=== PATIENT | male | born 1950 | race Caucasian/White ===

== ENCOUNTER 2023-07-18 15:05 | Emergency (ER) | payer MEDICARE, OTHER ==
[~2023-07-18] VITALS: Ht 175.3 cm; Wt 97.1 kg
[2023-07-18 15:07] VITALS: TEMP 98.3
[2023-07-18 18:15] LABS: BASO # 0.1 10^3/uL (0.0-0.2); BASO % 1.3 % (0.0-1.0); EOS # 0.4 10^3/uL (0.0-0.5); EOS % 4.1 % (0.0-3.0); HEMATOCRIT 40.8 % (42.0-52.0); HEMOGLOBIN 12.8 g/dl (13.5-17.5); LYMPH # 1.2 10^3/uL (1.5-5.0); LYMPH % 13.4 % (24.0-44.0); MEAN CORPUSCULAR HEMOGLOBIN 29.2 pg (27.0-33.0); MEAN CORPUSCULAR HGB CONC 31.4 g/dl (32.0-36.5); MEAN CORPUSCULAR VOLUME 92.9 fl (80.0-96.0); MONO # 0.7 10^3/uL (0.0-0.8); MONO % 7.3 % (2.0-8.0); NEUTROPHILS # 6.6 10^3/uL (1.5-8.5); NEUTROPHILS % 73.6 % (36.0-66.0); PLATELET COUNT, AUTOMATED 249 10^3/uL (150-450); RED BLOOD COUNT 4.39 10^6/uL (4.30-6.10); WHITE BLOOD COUNT 8.9 10^3/uL (4.0-10.0)
[2023-07-18 18:25] LABS: APPEARANCE, URINE CLEAR (CLEAR); BACTERIA, URINE AUTO NEGATIVE (NEGATIVE); BILIRUBIN, URINE AUTO NEGATIVE (NEGATIVE); BLOOD, URINE BLOOD NEGATIVE (NEGATIVE); COLOR, URINE YELLOW (YELLOW); GLUCOSE, URINE (UA) AUTO 3+ mg/dL (NEGATIVE); KETONE, URINE AUTO NEGATIVE (NEGATIVE); LEUKOCYTE ESTERASE, URINE AUTO NEGATIVE (NEGATIVE); NITRITE, URINE AUTO NEGATIVE (NEGATIVE); PROTEIN, URINE AUTO 2+ mg/dL (NEGATIVE); RBC, URINE AUTO 0 /HPF (0-3); SPECIFIC GRAVITY URINE AUTO 1.014 (1.002-1.035); SQUAMOUS EPITHELIAL CELL UR AU 0 /HPF (0-6); WBC, URINE AUTO 0 /HPF (0-3)
[2023-07-18] MEDS ORDERED: ARIP1TAB10 PO (18:46)
[2023-07-18] MEDS ORDERED: ALBU2.5V10 INH (18:46)
[2023-07-18] MEDS ORDERED: ATOR40TA75 PO (18:47)
[2023-07-18 18:50] LABS: ALBUMIN 3.3 G/DL (3.2-5.2); ALKALINE PHOSPHATASE 111 U/L (46-116); ALT/SGPT 26 U/L (7.0-40); AST/SGOT 19 U/L (<34); BILIRUBIN,DIRECT 0.2 MG/DL (<0.4); BILIRUBIN,TOTAL 0.4 MG/DL (0.3-1.2); BLOOD UREA NITROGEN 21 MG/DL (9-23); CALCIUM LEVEL 8.9 MG/DL (8.3-10.6); CARBON DIOXIDE LEVEL 30 MMOL/L (20-31); CHLORIDE LEVEL 106 MMOL/L (98-107); CREATININE FOR GFR 1.12 MG/DL (0.70-1.30); GLOMERULAR FILTRATION RATE > 60.0 (>42); GLUCOSE, FASTING 98 MG/DL (74-106); POTASSIUM SERUM 4.4 MMOL/L (3.5-5.1); SODIUM LEVEL 141 MMOL/L (136-145); TOTAL PROTEIN 6.4 G/DL (5.7-8.2)
[2023-07-18 18:53] LABS: CK-MB VALUE MASS 2.1 NG/ML (<3.6)
[2023-07-18 18:55] LABS: CPK CREATINE PHOSPHOKINASE 78 U/L (46-171); MB/CK RELATIVE INDEX 2.69 (< OR =4)
[2023-07-18] MEDS ORDERED: B-12100021 PO (18:57)
[2023-07-18] MEDS ORDERED: JARD1TAB3 PO (18:57)
[2023-07-18] MEDS ORDERED: CARV12.5 PO (18:57)
[2023-07-18] MEDS ORDERED: PRAZ5CAP PO (18:57)
[2023-07-18] MEDS ORDERED: PANT40TA29 PO (18:57)
[2023-07-18] MEDS ORDERED: LISI40TA4 PO (18:57)
[2023-07-18] MEDS ORDERED: TRUL0.5I SC (18:57)
[2023-07-18] MEDS ORDERED: GABA-282 PO (18:57)
[2023-07-18] MEDS ORDERED: CHLO125TA PO (18:57)
[2023-07-18] MEDS ORDERED: FURO20TA2 PO (18:57)
[2023-07-18] MEDS ORDERED: DULO1CAP6 PO (18:57)
[2023-07-18] MEDS ORDERED: LAMO150T3 PO (18:57)
[2023-07-18] MEDS ORDERED: LEVO150T7 PO (18:57)
[2023-07-18] MEDS ORDERED: KETOROLAC TROMETHAMINE 10 MG TAB PO ONE (19:15)
[2023-07-18] MEDS: CARVedilol 12.5 MG TAB PO ONE (19:40)
[2023-07-18 20:25] VITALS: BP 126/94
[2023-07-18] MEDS ORDERED: CARV25TA PO (20:50)
[2023-07-18 21:05] VITALS: O2SAT 95
== END 2023-07-18 21:08 | disposition home or self-care (01) ==
LOC: M ED 15:05 → EDBD 15:05 → M ED 21:08
DX: I11.0 Hypertensive heart disease with heart failure (principal); R01.1 Cardiac murmur, unspecified; E11.9 Type 2 diabetes mellitus without complications; E78.5 Hyperlipidemia, unspecified; J44.9 Chronic obstructive pulmonary disease, unspecified; M54.9 Dorsalgia, unspecified; Z79.02 Long term (current) use of antithrombotics/antiplatelets; Z91.013 Allergy to seafood

== ENCOUNTER → 2024-03-06 | Outpatient (CLI) | payer OTHER, MEDICARE ==
[~2024-03-06] MED LIST: ALBU2.5V10 INH; ARIP1TAB10 PO; ATOR40TA75 PO; B-12100021 PO; CARV12.5 PO; CARV25TA PO; CHLO125TA PO; DULO1CAP6 PO; FURO20TA2 PO; GABA-1172 PO; JARD1TAB3 PO; LAMO150T3 PO; LEVO150T7 PO; LISI40TA4 PO; PANT40TA29 PO; PRAZ5CAP PO; TRUL0.5I SC
== END ==
LOC: M RAD 10:10
PROVIDERS: ATTEND Nurse Practitioner Family
DX: E11.9 Type 2 diabetes mellitus without complications (principal); N18.9 Chronic kidney disease, unspecified

== ENCOUNTER 2024-07-29 18:17 | Inpatient (IN) | payer OTHER, MEDICARE ==
[~2024-07-29] VITALS: Ht 175.3 cm; Wt 111.6 kg
[2024-07-29] MEDS: methylPREDNISolone 125MG 2ML VIAL IV ONE (20:10)
[2024-07-29 20:18] LABS: VENOUS BASE EXCESS -0.4 (-2.0-2.0); VENOUS HCO3 28.6 MMOL/L (23.0-27.0); VENOUS O2 SATURATION 54.6 % (60.0-80.0); VENOUS PARTIAL PRESSURE O2 32.3 mmHg (30.0-50.0); VENOUS PH 7.255 UNITS (7.330-7.430); VENOUS STANDARD HCO3 23.1 MMOL/L; VENOUS TOTAL CO2 30.6 MMOL/L (24.0-28.0)
[2024-07-29] MEDS: IPRATROPIUM 0.5MG/ALBUTEROL 2.5MG INH SOL UD 3ML (DUONEB) NEB ONE (20:23)
[2024-07-29 20:24] LABS: BASO # 0.1 10^3/uL (0.0-0.2); EOS # 0.4 10^3/uL (0.0-0.5); EOS % 3.6 % (0.0-3.0); HEMATOCRIT 46.8 % (42.0-52.0); HEMOGLOBIN 14.4 g/dl (13.5-17.5); LYMPH # 0.9 10^3/uL (1.5-5.0); LYMPH % 7.3 % (24.0-44.0); MEAN CORPUSCULAR HEMOGLOBIN 29.1 pg (27.0-33.0); MEAN CORPUSCULAR HGB CONC 30.8 g/dl (32.0-36.5); MEAN CORPUSCULAR VOLUME 94.5 fl (80.0-96.0); MONO # 0.7 10^3/uL (0.0-0.8); MONO % 5.6 % (2.0-8.0); NEUTROPHILS # 9.6 10^3/uL (1.5-8.5); NEUTROPHILS % 82.2 % (36.0-66.0); PLATELET COUNT, AUTOMATED 195 10^3/uL (150-450); RED BLOOD COUNT 4.95 10^6/uL (4.30-6.10); WHITE BLOOD COUNT 11.7 10^3/uL (4.0-10.0)
[2024-07-29 20:48] LABS: CK-MB VALUE MASS 3.9 NG/ML (<3.6); MB/CK RELATIVE INDEX 3.82 (< OR =4)
[2024-07-29 20:49] LABS: ALBUMIN 3.1 G/DL (3.2-5.2); BILIRUBIN,DIRECT 0.1 MG/DL (<0.4); BILIRUBIN,TOTAL 0.3 MG/DL (0.3-1.2); CALCIUM LEVEL 8.4 MG/DL (8.3-10.6); CREATININE FOR GFR 1.52 MG/DL (0.70-1.30); GLOMERULAR FILTRATION RATE 47.8 (>42); POTASSIUM SERUM 4.4 MMOL/L (3.5-5.1); TOTAL PROTEIN 6.5 G/DL (5.7-8.2)
[2024-07-29 22:15] LABS: ABG BASE EXCESS -1.5 (-2.0-2.0); ABG HCO3 24.7 MMOL/L (22.0-26.0); ABG O2 SATURATION 96.2 % (95.0-99.0); ABG PARTIAL PRESSURE CO2 46.8 mmHg (35.0-45.0); ABG STANDARD HCO3 23.2 MMOL/L. (22.0-26.0); ABG TOTAL CO2 26.1 MMOL/L (23.0-31.0)
[2024-07-29] MEDS ORDERED: ISOVUE-370 76% 100ML VIAL As Ordered ONE (22:20)
[2024-07-29 22:47] LABS: CK-MB VALUE MASS 4.5 NG/ML (<3.6)
[2024-07-29 22:48] LABS: MB/CK RELATIVE INDEX 3.65 (< OR =4)
[2024-07-30] MEDS: cefTRIAXone SOD 2 GM in DEXTROSE 5% (D5W) ADV/MINI-BAG 50 ML IV ONE (00:25)
[2024-07-30] MEDS: AZITHROMYCIN 250MG TABLET PO ONE (00:26)
[2024-07-30] MEDS ORDERED: TRUL10IN SC (01:17)
[2024-07-30] MEDS ORDERED: ROSU20TA86 PO (01:17)
[2024-07-30] MEDS ORDERED: BUME1TAB3 PO (01:17)
[2024-07-30] MEDS ORDERED: ENTR1TAB PO (01:17)
[2024-07-30] MEDS ORDERED: SOTA80TA2 PO (01:17)
[2024-07-30] MEDS ORDERED: VITA-168 PO (01:17)
[2024-07-30] MEDS ORDERED: PRAZ5CAP PO (01:17)
[2024-07-30] MEDS ORDERED: ELIQ5TAB PO (01:17)
[2024-07-30] MEDS ORDERED: FERR1TAB8 PO (01:17)
[2024-07-30] MEDS ORDERED: AMLO1TAB25 PO (01:17)
[2024-07-30] MEDS ORDERED: DULO1CAP6 PO (01:17)
[2024-07-30] MEDS ORDERED: CARV25TA PO (01:17)
[2024-07-30] MEDS ORDERED: ASCO500T PO (01:17)
[2024-07-30] MEDS ORDERED: ASPI81CH33 PO (01:17)
[2024-07-30] MEDS ORDERED: LAMI1TAB8 PO (01:17)
[2024-07-30] MEDS ORDERED: HOME MED LIST COMPLETE! XX SCH (01:20)
[2024-07-30] MEDS ORDERED: GLUCAGON INJ 1MG VIAL SC PRN (02:35)
[2024-07-30] MEDS ORDERED: DEXTROSE 50% 50ML SYRINGE IV PRN (02:35)
[2024-07-30] MEDS ORDERED: GLUCOSE 4 GM CHEW PO PRN (02:35)
[2024-07-30] MEDS ORDERED: PILL CUTTER 1 EACH XX PRN (02:55)
[2024-07-30] MEDS ORDERED: IPRATROPIUM 0.5MG/ALBUTEROL 2.5MG INH SOL UD 3ML (DUONEB) NEB PRN ×2 (03:05)
[2024-07-30] MEDS: lamoTRIgine 100MG TAB PO SCH (04:49)
[2024-07-30] MEDS: DOXYCYCLINE HYCLATE 100MG TABLET PO SCH (04:49)
[2024-07-30] MEDS: NS (Normal Saline) 0.9% 1,000 ML IV SCH (04:49)
[2024-07-30] MEDS: LEVOTHYROXINE 150MCG TABLET (0.15MG) PO SCH (06:34)
[2024-07-30] MEDS: methylPREDNISolone 40MG 1ML VIAL IV SCH (06:34)
[2024-07-30 06:59] LABS: HEMATOCRIT 47.8 % (42.0-52.0); MEAN CORPUSCULAR HEMOGLOBIN 29.3 pg (27.0-33.0); MEAN CORPUSCULAR HGB CONC 31.4 g/dl (32.0-36.5); MEAN CORPUSCULAR VOLUME 93.4 fl (80.0-96.0); PLATELET COUNT, AUTOMATED 200 10^3/uL (150-450); RED BLOOD COUNT 5.12 10^6/uL (4.30-6.10); WHITE BLOOD COUNT 7.2 10^3/uL (4.0-10.0)
[2024-07-30 07:44] LABS: ALBUMIN 3.1 G/DL (3.2-5.2); BILIRUBIN,TOTAL 0.3 MG/DL (0.3-1.2); CALCIUM LEVEL 8.6 MG/DL (8.3-10.6); CREATININE FOR GFR 1.34 MG/DL (0.70-1.30); GLOMERULAR FILTRATION RATE 55.3 (>42); POTASSIUM SERUM 4.6 MMOL/L (3.5-5.1); TOTAL PROTEIN 6.7 G/DL (5.7-8.2)
[2024-07-30] MEDS: SYMBICORT 160/4.5MCG INHALER 6GM INH SCH (08:46)
[2024-07-30] MEDS ORDERED: ENTRESTO 24-26MG TABLET (SACUBITRIL/VALSARTAN) PO SCH (09:00)
[2024-07-30] MEDS: INSULIN LISPRO (NovoLOG) PER UNIT SC SCH ×2 (09:26→20:18)
[2024-07-30] MEDS: PANTOPRAZOLE 40MG VIAL IV SCH (09:27)
[2024-07-30] MEDS: PRAZOSIN 1 MG CAP PO SCH (09:27)
[2024-07-30] MEDS: CARVedilol 12.5 MG TAB PO SCH (09:28)
[2024-07-30] MEDS: ASPIRIN 81MG CHEW TABLET PO SCH (09:28)
[2024-07-30] MEDS: APIXABAN 5 MG TAB (ELIQUIS) PO SCH (09:28)
[2024-07-30] MEDS: DULoxetine 30MG CAPSULE (CYMBALTA) PO SCH (09:29)
[2024-07-30] MEDS: ROSUVASTATIN 10 MG TAB (CRESTOR) PO SCH (09:29)
[2024-07-30] MEDS: ARIPiprazole 15 MG TAB (AbiLIFY) PO SCH (10:55)
[2024-07-30] MEDS: BUMETANIDE 1 MG TAB PO SCH (10:56)
[2024-07-30] MEDS: SOTALOL HCL 80 MG TAB PO SCH (10:56)
[2024-07-30 14:13] LABS: CALCIUM LEVEL 8.6 MG/DL (8.3-10.6); CREATININE FOR GFR 1.48 MG/DL (0.70-1.30); GLOMERULAR FILTRATION RATE 49.3 (>42); POTASSIUM SERUM 4.6 MMOL/L (3.5-5.1)
[2024-07-30 14:47] VITALS: BP 158/84; TEMP 97.2; O2SAT 93
[2024-07-30 20:00] VITALS: BP 123/70; TEMP 97.3; O2SAT 93
[2024-07-30] MEDS: cefTRIAXone SOD 1 GM in DEXTROSE 5% (D5W) ADV/MINI-BAG 50 ML IV SCH (20:18)
[2024-07-30 23:50] VITALS: BP 124/68; TEMP 97.3; O2SAT 93
[2024-07-31] VITALS (7 sets, daily range): BP systolic 122–136; BP diastolic 65–76; TEMP 97–100.1; O2SAT 90–93
[2024-07-31 06:07] LABS: HEMATOCRIT 40.8 % (42.0-52.0); MEAN CORPUSCULAR HEMOGLOBIN 29.1 pg (27.0-33.0); MEAN CORPUSCULAR HGB CONC 31.1 g/dl (32.0-36.5); MEAN CORPUSCULAR VOLUME 93.6 fl (80.0-96.0); PLATELET COUNT, AUTOMATED 220 10^3/uL (150-450); RED BLOOD COUNT 4.36 10^6/uL (4.30-6.10); WHITE BLOOD COUNT 11.7 10^3/uL (4.0-10.0)
[2024-07-31 06:09] LABS: HEMOGLOBIN 12.7 g/dl (13.5-17.5)
[2024-07-31 06:36] LABS: ALBUMIN 2.7 G/DL (3.2-5.2); BILIRUBIN,TOTAL 0.2 MG/DL (0.3-1.2); CALCIUM LEVEL 8.1 MG/DL (8.3-10.6); CREATININE FOR GFR 1.41 MG/DL (0.70-1.30); GLOMERULAR FILTRATION RATE 52.2 (>42); POTASSIUM SERUM 4.4 MMOL/L (3.5-5.1); TOTAL PROTEIN 5.8 G/DL (5.7-8.2)
[2024-07-31 11:41] LABS: APPEARANCE, URINE HAZY (CLEAR); BACTERIA, URINE AUTO NEGATIVE (NEGATIVE); BILIRUBIN, URINE AUTO NEGATIVE (NEGATIVE); BLOOD, URINE BLOOD NEGATIVE (NEGATIVE); COLOR, URINE YELLOW (YELLOW); GLUCOSE, URINE (UA) AUTO 3+ mg/dL (NEGATIVE); KETONE, URINE AUTO NEGATIVE (NEGATIVE); LEUKOCYTE ESTERASE, URINE AUTO NEGATIVE (NEGATIVE); MUCUS, URINE SMALL (NEGATIVE); NITRITE, URINE AUTO NEGATIVE (NEGATIVE); PROTEIN, URINE AUTO 3+ mg/dL (NEGATIVE); RBC, URINE AUTO 1 /HPF (0-3); SPECIFIC GRAVITY URINE AUTO 1.026 (1.002-1.035); SQUAMOUS EPITHELIAL CELL UR AU 1 /HPF (0-6); UROBILINOGEN, URINE AUTO 0.2 mg/dL (0.0-2.0); WBC, URINE AUTO 3 /HPF (0-3)
[2024-07-31] MEDS ORDERED: SYMB16INH INH (12:54)
[2024-07-31] MEDS ORDERED: PRED10TA2 PO (12:54)
[2024-07-31] MEDS ORDERED: VENTAER INH (13:12)
[2024-07-31] MEDS ORDERED: FLUT1BLS IH (13:54)
== END 2024-07-31 17:21 | disposition home or self-care (01) | DRG 196 ==
LOC: EDBD 18:17 → M ED 18:17 → M ED INP 07-30 01:48 → M MSPAV 07-30 14:47
PROVIDERS: ADMIT Family Medicine; ATTEND Student in an Organized Health Care Education/Training Program
DX: J84.89 Other specified interstitial pulmonary diseases (principal); I21.A1 Myocardial infarction type 2; J15.9 Unspecified bacterial pneumonia; J44.0 Chronic obstructive pulmonary disease with (acute) lower respiratory infection; J44.1 Chronic obstructive pulmonary disease with (acute) exacerbation; N17.9 Acute kidney failure, unspecified; I13.0 Hypertensive heart and chronic kidney disease with heart failure and stage 1 through stage 4 chronic kidney disease, or unspecified chronic kidney disease; N18.9 Chronic kidney disease, unspecified; I50.9 Heart failure, unspecified; R91.8 Other nonspecific abnormal finding of lung field; I48.91 Unspecified atrial fibrillation; E11.22 Type 2 diabetes mellitus with diabetic chronic kidney disease; I27.20 Pulmonary hypertension, unspecified; F32.A Depression, unspecified; K57.90 Diverticulosis of intestine, part unspecified, without perforation or abscess without bleeding; Z95.0 Presence of cardiac pacemaker; Z90.49 Acquired absence of other specified parts of digestive tract; Z79.01 Long term (current) use of anticoagulants; Z79.82 Long term (current) use of aspirin; Z79.890 Hormone replacement therapy; Z79.899 Other long term (current) drug therapy; Z91.013 Allergy to seafood; Z99.81 Dependence on supplemental oxygen

== ENCOUNTER 2024-09-20 10:58 | Emergency (ER) | payer OTHER, MEDICARE ==
[~2024-09-20] VITALS: Ht 167.6 cm; Wt 101.7 kg
[~2024-09-20 10:58] MED LIST changes: +AMLO1TAB25 PO; +ASCO500T PO; +ASPI81CH33 PO; +BUME1TAB3 PO; +ELIQ5TAB PO; +ENTR1TAB PO; +FERR1TAB8 PO; +FLUT1BLS IH; +LAMI1TAB8 PO; +PRED10TA2 PO; +ROSU20TA86 PO; +SOTA80TA2 PO; +SYMB16INH INH; +TRUL10IN SC; +VENTAER INH; +VITA-168 PO
[2024-09-20 11:53] LABS: BASO # 0.1 10^3/uL (0.0-0.2); BASO % 1.4 % (0.0-1.0); EOS # 0.4 10^3/uL (0.0-0.5); EOS % 5.2 % (0.0-3.0); HEMATOCRIT 45.3 % (42.0-52.0); HEMOGLOBIN 14.6 g/dl (13.5-17.5); LYMPH # 1.3 10^3/uL (1.5-5.0); LYMPH % 15.3 % (24.0-44.0); MEAN CORPUSCULAR HEMOGLOBIN 29.4 pg (27.0-33.0); MEAN CORPUSCULAR HGB CONC 32.2 g/dl (32.0-36.5); MEAN CORPUSCULAR VOLUME 91.3 fl (80.0-96.0); MONO # 0.5 10^3/uL (0.0-0.8); MONO % 5.5 % (2.0-8.0); NEUTROPHILS % 72.4 % (36.0-66.0); PLATELET COUNT, AUTOMATED 181 10^3/uL (150-450); RED BLOOD COUNT 4.96 10^6/uL (4.30-6.10); WHITE BLOOD COUNT 8.3 10^3/uL (4.0-10.0)
[2024-09-20 12:07] LABS: INR 1.24; PROTHROMBIN TIME 15.8 SECONDS (12.5-14.5)
[2024-09-20 12:16] LABS: KETONE, URINE AUTO RFX NEGATIVE (NEGATIVE); LEUKOCYTE ESTERASE UR AUTO RFX NEGATIVE (NEGATIVE); MUCUS, URINE RFX SMALL (NEGATIVE); NITRITE, URINE AUTO RFX NEGATIVE (NEGATIVE); RBC, URINE AUTO RFX 1 /HPF (0-3); SQUAM EPITHELIAL CELL UR AURFX 1 /HPF (0-6); WBC, URINE AUTO RFX 1 /HPF (0-3)
[2024-09-20 12:18] LABS: CREATININE FOR GFR 1.26 MG/DL (0.70-1.30); GLOMERULAR FILTRATION RATE 59.5 (>42); POTASSIUM SERUM 4.1 MMOL/L (3.5-5.1)
[2024-09-20] MEDS: LIDOCAINE 5% (LIDODERM) PATCH TD ONE (15:17)
[2024-09-20] MEDS ORDERED: TRAM50TA2 PO (15:26)
[2024-09-20 15:31] VITALS: BP 124/64; TEMP 98.4; O2SAT 96
[2024-09-20] MEDS: traMADol 50 MG TAB (HOME DOSE PACK) PO ONE (15:32)
== END 2024-09-20 15:40 | disposition home or self-care (01) ==
LOC: M ED 10:58
DX: M51.360 Other intervertebral disc degeneration, lumbar region with discogenic back pain only (principal); I48.91 Unspecified atrial fibrillation; I50.22 Chronic systolic (congestive) heart failure; E11.9 Type 2 diabetes mellitus without complications; I11.0 Hypertensive heart disease with heart failure; Z85.850 Personal history of malignant neoplasm of thyroid; F10.10 Alcohol abuse, uncomplicated; Z91.013 Allergy to seafood; Z79.01 Long term (current) use of anticoagulants; Z79.1 Long term (current) use of non-steroidal anti-inflammatories (NSAID); Z79.52 Long term (current) use of systemic steroids; Z79.899 Other long term (current) drug therapy